=== PATIENT | female | born 1990 | race Caucasian/White ===

== ENCOUNTER → 2017-07-12 | Outpatient (CLI) | payer OTHER | LOC: FIMAGING 08:03 | PROVIDERS: ATTEND Advanced Practice Midwife | DX: Z34.92 Encounter for supervision of normal pregnancy, unspecified, second trimester (principal); Z3A.21 21 weeks gestation of pregnancy ==

== ENCOUNTER → 2017-08-23 | Outpatient (CLI) | payer OTHER | LOC: FIMAGING 09:05 | PROVIDERS: ATTEND Advanced Practice Midwife | DX: Z34.93 Encounter for supervision of normal pregnancy, unspecified, third trimester (principal); Z3A.27 27 weeks gestation of pregnancy ==

== ENCOUNTER 2017-11-09 06:00 | Inpatient (IN) | payer OTHER ==
[2017-11-09] MEDS ORDERED: OXYTOCIN 10 UNIT/ML VIAL ONE (09:45)
[2017-11-09] MEDS ORDERED: LIDOCAINE 1% 300 MG/30 ML SDV ONE (09:45)
[2017-11-09] MEDS ORDERED: MISOPROSTOL 200 MCG TAB ONE (09:45)
[2017-11-09] MEDS ORDERED: OLIVE OIL 118 ML BTL ONE (09:45)
[2017-11-09] MEDS ORDERED: AMMONIA AROMATIC 1 EACH AMP IH ONE (09:45)
[2017-11-09] MEDS ORDERED: TERBUTALINE SULFATE 1 MG/ML VIAL ONE (09:45)
[2017-11-09] MEDS ORDERED: LR 1,000 ML IV PRN (10:23)
[2017-11-09] MEDS ORDERED: LIDOCAINE 1% 300 MG/30 ML SDV SC PRN (10:23)
[2017-11-09] MEDS ORDERED: EPSOM SALT 454 GM TP PRN (10:23)
[2017-11-09] MEDS ORDERED: LR 500 ML IV PRN (10:23)
[2017-11-09] MEDS ORDERED: IBUPROFEN 600 MG TAB PO PRN (10:23)
[2017-11-09] MEDS ORDERED: MISOPROSTOL 200 MCG TAB PO PRN (10:23)
[2017-11-09] MEDS ORDERED: OXYTOCIN/RINGERS LACTATE 500 ML IV SCH (10:23)
[2017-11-09] MEDS ORDERED: TERBUTALINE SULFATE 1 MG/ML VIAL IV PRN (10:23)
[2017-11-09] MEDS ORDERED: OLIVE OIL 118 ML BTL MISC PRN (10:23)
[2017-11-09] MEDS ORDERED: AMMONIA AROMATIC 1 EACH AMP IH PRN (10:23)
[2017-11-09] MEDS ORDERED: OXYTOCIN/RINGERS LACTATE 1,000 ML IV PRN (10:23)
[2017-11-09 10:50] LABS: PLATELET COUNT 231 10^3/uL (150-400)
[2017-11-09] MEDS ORDERED: CALCIUM CARBONATE 500 MG CHEWABLE TAB PO PRN (12:15)
--- NOTE | 2017-11-09 14:10 | PDGENHP ---
History and Physical History and Physical: CARE: [facility] HPI: Patient is a 27 yo @ 39 wks that presents to L&D with for induction of labor due to IUGR at 8% with normal EDC: 11/16/2017 which is based on LMP: 02/09/2017 which is known and consistent with Ultrasound at 6 weeks. Her is complicated by: IUGR and loose ligament syndrome Review of Systems: Constitutional: Denies any fever, chills, or fatigue HEENT: denies any visual changes, difficulty swallowing, hearing loss Cardiovascular: Denies any chest pain, palpitations, leg swelling Respiratory: denies any cough, wheezing, or shortness of breathe GI: Denies any nausea, vomiting, diarrhea, constipation : denies any dysuria, urgency, frequency, vaginal bleeding Musculoskeletal: denies any muscle or bone pain Skin: denies any rashes Neuro: denies any headache, seizures, lightheadedness, dizziness, or loss of consciousness Psychiatric: denies any depression, anxiety, or SI/HI thoughts HISTORY: Previous OB history: Uncomplicated SAB Past medical history: pylo in college Past surgical history: knee and shoulder surgery Medications: PNV Allergies:Cipro - rash; Adhesive tape: rash LABS: Rh: O+ ABS: Neg Rubella: Immune HbsAg: NR HIV: NR VDRL: NR 1hr: 80 GC: neg Chlamydia: neg Pap: GBS: neg BMI: (prepreg) 25.5 PHYSICAL EXAM: Constitutional: WN, A&Ox3 HEENT: normocephalic atraumatic, supple Heart: RRR, no murmur Chest: CTA-B Abdomen: Soft, nontender, gravid SVE: 4/80/-1 Extremities: neg edema, negative homans sign Neuro: grossly normal Psych: normal affect assessment: FHT baseline 140 +accels, no decels, moderate variability Contractions: toco q irregular Assessment: 1) 27 yo G [id number] with IUP@ 39 2) Induction of labor for IUGR 3) GBS negative 4) Cat 1 FHR tracing Plan: 1) Admit to L&D 2) Pitocin induction per protocol 3) Desires epidural for pain management 4) Anticipate
[2017-11-09] MEDS ORDERED: BUPIVACAINE 0.25% 30 ML SDV ONE (16:23)
[2017-11-09] MEDS ORDERED: PHENYLEPHRINE HCL 100 MCG/ML SYR ONE (16:23)
[2017-11-09] MEDS ORDERED: fentaNYL 2MCG/ML/BUP 0.1% RTU 100 ML BAG EP ONE (16:23)
[2017-11-09] MEDS ORDERED: fentaNYL 100 MCG/2 ML INJ ONE (16:24)
[2017-11-09] MEDS ORDERED: PHENYLEPHRINE HCL 100 MCG/ML SYR IVP PRN (17:14)
[2017-11-09] MEDS ORDERED: NALOXONE HCL 0.4 MG/ML INJ IVP PRN (17:14)
[2017-11-09] MEDS ORDERED: ONDANSETRON 4 MG/2 ML VIAL IVP PRN (17:14)
--- NOTE | 2017-11-09 17:19 | PREANESOB ---
Obstetric Pre-Anesthesia Info - General Info Proposed Procedure: labor : 2 Para: 0 ARIANNA: 11/16/17 Gestational Age: 39 week(s) and 0 day(s) - Info Status: Full Term Monitors: External FHR Pattern: Reassuring - Labor Status Cervical Dilation per last OB SVE: 5 Indications for Labor Analgesia: Augmentation of Labor Labor Epidural: Proposed (see OB notes for more OB info) Anesthesia ROS: previous anesthetics: shoulder, knee x 3; no anesthesia problems; neg fam hx of anes problems; meds: pnv; sensitivity to tape; allergy to cipro; vs recorded on other software Allergies/Adverse Reactions: Allergy/AdvReac Type Severity Reaction Status Date / Time ciprofloxacin [From Cipro] Allergy Verified 09/23/14 07:22 ciprofloxacin HCl Allergy Verified 09/23/14 07:22 [From Cipro] Home Medications: Medication Instructions Recorded Bcp 09/23/14 Nitrofurantoin Macrobid [Macrobid 100 mg PO BID #12 cap 09/23/14 100 mg] Visit Medications: Generic Name Dose Route Start Last Admin Trade Name Freq PRN Reason Stop Dose Admin Ammonia (Aromatic Spirit) 1 each 11/09/17 10:23 Ammonia Aromatic IH 11/19/17 10:22 ONCE PRN Fainting Calcium Carbonate 500 - 1,000 mg 11/09/17 12:15 11/09/17 12:19 Tums PO 05/08/18 12:14 1,000 mg Q4 PRN Administration Acid Reflux Diphenhydramine HCl 25 - 50 mg 11/09/17 17:14 Benadryl Injection IVP 05/08/18 17:13 Q6HRS PRN Itching Ephedrine Sulfate 10 mg 11/09/17 17:14 Ephedrine Sulfate IV 05/08/18 17:13 .Q2M PRN Hypotension Lactated Ringer's 1,000 mls @ 0 mls/hr 11/09/17 10:23 Lr IV 11/10/17 10:22 PRN PRN SEE PROTOCOL CONDITIONS Protocol Per Protocol Lactated Ringer's 500 mls @ 500 mls/hr 11/09/17 10:23 Lr IV 11/09/17 19:41 PRN PRN Maternal Hypotension Oxytocin/Lactated Ringer's 1,000 mls @ 0 mls/hr 11/09/17 10:23 Pitocin 20 Units/Lr (Premix) IV PRN PRN Post bleeding Wide Open Oxytocin/Lactated Ringer's 500 mls @ 0 mls/hr 11/09/17 10:23 11/09/17 10:59 Pitocin 30 Units/Lr (Premix) IV 05/08/18 10:22 500 mls CONT CHRISTINA Administration Protocol Per Protocol Fentanyl/Bupivacaine HCl 100 mls @ 0 mls/hr 11/09/17 17:30 Fentanyl/Bupivacaine/Ns 2 Mcg/Ml 0.1% (Premix EP 11/19/17 17:29 CONT CHRISTIAN Protocol As Directed Lactated Ringer's 500 mls @ 0 mls/hr 11/09/17 17:30 Lr IV 05/08/18 17:29 CONT CHRISTIAN As Directed Ibuprofen 600 mg 11/09/17 10:23 Motrin PO ONCE PRN post , pain Lidocaine HCl 300 mg 11/09/17 10:23 Lidocaine Hcl 1% SC 05/08/18 10:22 ONCE PRN episiotomy Magnesium Sulfate 454 gm 11/09/17 10:23 Epsom Salt TP 05/08/18 10:22 Q1H PRN perineal discomfort Misoprostol 800 - 1,000 mcg 11/09/17 10:23 Cytotec PO 05/08/18 10:22 ONCE PRN Vaginal Atony/Bleeding Naloxone HCl 0.4 mg 11/09/17 17:14 Narcan IVP 05/08/18 17:13 PRN PRN Respiratory depression [place] Oil 118 ml 11/09/17 10:23 Sweet Oil MISC 05/08/18 10:22 ONCE PRN perineal massage Ondansetron HCl 4 mg 11/09/17 17:14 Zofran IVP 11/10/17 17:13 Q4HRS PRN Nausea/Vomiting, Can't Take PO Phenylephrine HCl 100 mcg 11/09/17 17:14 Neosynephrine IVP 05/08/18 17:13 .Q2M PRN Hypotension Terbutaline Sulfate 0.25 mg 11/09/17 10:23 Brethine IV 05/08/18 10:22 ONCE PRN Tachysystole Discontinued Medications Generic Name Dose Route Start Last Admin Trade Name Freq PRN Reason Stop Dose Admin Ammonia (Aromatic Spirit) Confirm 11/09/17 09:45 Ammonia Aromatic Administered 11/09/17 09:46 Dose 1 each IH .STK-MED ONE Bupivacaine HCl Confirm 11/09/17 16:23 Sensorcaine 0.25% Sdv Administered 11/09/17 16:24 Dose 30 ml .ROUTE .STK-MED ONE Fentanyl Confirm 11/09/17 16:24 Sublimaze Administered 11/09/17 16:25 Dose 100 mcg .ROUTE .STK-MED ONE Fentanyl/Bupivacaine HCl Confirm 11/09/17 16:23 Fentanyl/Bupivacaine/Ns 2 Mcg/Ml 0.1% (Premix Administered 11/09/17 16:24 Dose 100 ml EP .STK-MED ONE Lidocaine HCl Confirm 11/09/17 09:45 Lidocaine Hcl 1% Administered 11/09/17 09:46 Dose 300 mg .ROUTE .STK-MED ONE Misoprostol Confirm 11/09/17 09:45 Cytotec Administered 11/09/17 09:46 Dose 1,000 mcg .ROUTE .STK-MED ONE [place] Oil Confirm 11/09/17 09:45 Sweet Oil Administered 11/09/17 09:46 Dose 118 ml .ROUTE .STK-MED ONE Oxytocin Confirm 11/09/17 09:45 Pitocin Administered 11/09/17 09:46 Dose 40 unit .ROUTE .STK-MED ONE Phenylephrine HCl Confirm 11/09/17 16:23 Neosynephrine Administered 11/09/17 16:24 Dose 1,000 mcg .ROUTE .STK-MED ONE Terbutaline Sulfate Confirm 11/09/17 09:45 Brethine Administered 11/09/17 09:46 Dose 1 mg .ROUTE .STK-MED ONE - Anesthesia History Response to Local Anesthetics: Normal Anesthesia & Operative History: No Prior Problems Family Anesthesia History: Negative - Social History Substance Use/Abuse: Denies - Vital Signs Height/Weight (Nursing): Height 170.18 cm Weight 89.358 kg - Focused Exam Neck exam: FROM Mallampati Score: Class 2 Mouth exam: normal dental/mouth exam Pulmonary: no respiratory distress Cardiovascular: regular rate and rhythym Labs: 11/09/17 10:31 Patient ABO/Rh O POSITIVE 11/09/17 10:31 - Plan Anesthetic Plan: magdalena Consent Signed and on Chart: Yes Patient/Guardian Understands and Agrees to Plan: Yes Urgent/Emergent Case: Anuradha saldana completed preop but documented later for safe timely pt care
--- NOTE | 2017-11-09 17:20 | POSTANESTH ---
Post Anesthetic Evaluation Cardiovascular Status: Normal, Stable Respiratory Status: Normal, Stable Level of Consciousness/Mental Status: Can Participate in Eval Pain Control: Adequate, Prn Tx Ordered Nausea/Vomiting Control: Adequate, Prn Tx Ordered Complications Possibly Related to Anesthesia: None Noted (uneventful placement of epidural, vss, motor intact, comfortable)
[2017-11-09] MEDS ORDERED: LR 500 ML IV SCH (17:30)
[2017-11-09] MEDS ORDERED: fentaNYL 2MCG/ML/BUP 0.1% RTU 100 ML EP SCH (17:30)
--- NOTE | 2017-11-09 20:31 | OBPROG ---
Labor Progress Note Assessment/Plan: Assessment: Pitocin at 20 iu's with contractions every 5 minutes, just now starting to feel contractions. VE 5/80/0 station. AROM performed with copious amounts of clear fluid returned. Vertex well applied to cervix immediately after AROM and next contraction was very strong. Plan: Desires epidural for pain management now. Anesthesia notified 11/09/17 16:20 Subjective/Intrapartum Course: 11/09/17 16:20 Contractions q 4 to 5 minutes; just now started to feel contractions. Discussed option of AROM including risks versus benefits. Desires to proceed with AROM Objective: 11/09/17 10:31 Patient ABO/Rh O POSITIVE 11/09/17 10:31 - SVE Dilation (cm): 5 Effacement (%): 80 Station: 0 Membranes: AROM Amniotic Fluid Color: Clear - Contraction Pattern Assessment Current Contraction Pattern: Regular - Procedures Non-surgical Procedures: Amniotomy - Physical Exam Estimated Weight: 2501-3400g CNM Assessment - Uterine Assessment Contraction Strength: Moderate Uterine Resting Tone: Palpates Soft Oxytocin Orders Assessment - Pre-Induction/Augmentation Assessment Presentation: Vertex Gestational Age: 39 week(s) and 0 day(s) Membrane Status: Ruptured Current Contraction Pattern: Regular - Neumann's Score Dilation: 5-6cm Effacement: 80+ Station: -1,0 Cervix: Soft Cervix Position: Mid Neumann Score Total: 11 ICD10 Worksheet Patient Problems: Problems Problem Status Onset IUGR (intrauterine growth restriction) affecting care of mother Acute - ICD10 Problem Qualifiers (1) IUGR (intrauterine growth restriction) affecting care of mother
--- NOTE | 2017-11-09 20:43 | OBDEL ---
Info Type: Vaginal Presentation at Delivery: Vertex L&D Analgesia/Anesthesia Type: Epidural GBS+: No Intrapartum Medications: Generic Name Dose Route Start Last Admin Trade Name Francois PRN Reason Stop Dose Admin Calcium Carbonate 500 - 1,000 mg 11/09/17 12:15 11/09/17 12:19 Tums PO 05/08/18 12:14 1,000 mg Q4 PRN Administration Acid Reflux Oxytocin/Lactated Ringer's 500 mls @ 0 mls/hr 11/09/17 10:23 11/09/17 10:59 Pitocin 30 Units/Lr (Premix) IV 05/08/18 10:22 500 mls CONT CHRISTIAN Administration Protocol Per Protocol - Hospital Course Intrapartum: 11/09/17 16:20 Contractions q 4 to 5 minutes; just now started to feel contractions. Discussed option of AROM including risks versus benefits. Desires to proceed with AROM Vaginal Delivery - Delivery Provider Delivery Physician/CNM: Aiyana Chisholm Proctoring Provider: Vanessa Brady - Labor and Delivery Onset of Contractions Date: 11/09/17 Onset of Contractions Time: 16:20 Onset of Contractions Type: Induced Rupture of Membranes Date: 11/09/17 Rupture of Membranes Time: 16:20 Rupture of Membranes Type: Artificial Amniotic Fluid Color: Clear Dilation Complete Date: 11/09/17 Dilation Complete Time: 17:30 Placenta Delivery Date: 11/09/17 Placenta Delivery Time: 19:58 Total Hours of Labor: 3 Non-surgical Procedures: Amniotomy Laceration: 2nd Degree Repair: 3-0 Vaginal Sponge Count Correct: Yes Vaginal Needle Count Correct: Yes Vaginal Sweep Performed: Yes EBL: 200 Delivery Events: None - Medications Labor Augmentation/Induction Methods Used: Pitocin Labor Augmentation/Induction Indication: IUGR [place] Data ARIANNA: 11/16/17 Gestational Age: 39 week(s) and 0 day(s) ICD10 Worksheet Patient Problems: Problems Problem Status Onset (spontaneous vaginal delivery) Acute - ICD10 Problem Qualifiers (1) IUGR (intrauterine growth restriction) affecting care of mother
[2017-11-10] MEDS: IBUPROFEN 600 MG TAB PO SCH ×4 (02:52→21:03)
[2017-11-10] MEDS: ACETAMINOPHEN 325 MG TAB PO SCH ×4 (02:52→17:43)
--- NOTE | 2017-11-10 15:53 | OBPP ---
Progress Note Assessment/Plan: Assessment: [id number] s/p PPD#1 Plan: routine PP care / support ambulate PO fluids anticipate d/c home tomorrow Subjective/ Course: 11/10/17 15:54 Pt doing well. She is , baby latching well. She denies any severe pain or heavy bleeding. She is ambulating and voiding without difficulty. FOB and family @BS and supportive. Objective: 11/09/17 10:31 Patient ABO/Rh O POSITIVE 11/09/17 10:31 Temp Pulse Resp BP Pulse Ox 36.3 C 93 20 112/72 93 11/10/17 08:00 11/10/17 08:00 11/10/17 08:00 11/10/17 08:00 11/10/17 08:00 Uterine Position/Fundal Height: Umbilicus -2, Midline Uterine Tone: Firm
[2017-11-10] MEDS: DOCUSATE SODIUM 100 MG CAP PO SCH (20:03)
[2017-11-11] MEDS: ACETAMINOPHEN 325 MG TAB PO SCH ×2 (00:28→08:01)
[2017-11-11] MEDS: IBUPROFEN 600 MG TAB PO SCH ×2 (03:31→08:54)
[2017-11-11] MEDS: DOCUSATE SODIUM 100 MG CAP PO SCH (08:53)
[2017-11-11 10:28] VITALS: BP 111/71
--- NOTE | 2017-11-11 11:08 | OBPP ---
Progress Note Assessment/Plan: Assessment: Assessment: [id number] s/p PPD#2 Plan: routine PP care / support ambulate PO fluids anticipate d/c home today Subjective/ Course: Doing great - ready for home. Objective: 11/09/17 10:31 Patient ABO/Rh O POSITIVE 11/09/17 10:31 Temp Pulse Resp BP Pulse Ox 36.5 C 68 20 111/71 95 11/11/17 08:00 11/11/17 08:00 11/11/17 08:00 11/11/17 08:00 11/10/17 21:08 Uterine Position/Fundal Height: At Umbilicus Uterine Tone: Firm
--- NOTE | 2017-11-11 11:31 | OBGCSDC ---
General Delivery Information - General Info : 2 Para: 1 Abortions: 1 Type: Vaginal L&D Analgesia/Anesthesia Type: Epidural Admission Date: 11/09/17 Labs: Patient ABO/Rh O POSITIVE 11/09/17 10:31 Hct 41.3 % (38.0-47.0) 11/09/17 10:31 - Hospital Course Intrapartum: 11/09/17 16:20 Contractions q 4 to 5 minutes; just now started to feel contractions. Discussed option of AROM including risks versus benefits. Desires to proceed with AROM : 11/10/17 15:54 Pt doing well. She is , baby latching well. She denies any severe pain or heavy bleeding. She is ambulating and voiding without difficulty. FOB and family @BS and supportive. Vaginal - Delivery Provider Delivery Physician/CNM: Aiyana Chisholm - Diagnosis Labor: Induced Rupture of Membranes Type: Artificial Amniotic Fluid Color: Clear Laceration: 2nd Degree Repair: 3-0 Delivery Events: None - Procedures Non-surgical Procedures: Amniotomy - Delivery Non-surgical Procedures: Amniotomy EBL: 200 [place] Data ARIANNA: 11/16/17 Gestational Age: 41 week(s) and 6 day(s) [place] Delivery Date: 11/09/17 Delivery Time: 19:53 Sex of : Female [place] Weight (gm): 2738 g Score (1 Min): 9 Score (5 Min): 9 Discharge Information - Discharge Information Condition: Good Instruction/Follow Up: See Instruction Sheet, Four Weeks, Six Weeks
== END 2017-11-11 12:25 | disposition home or self-care (01) | DRG 775 ==
LOC: FLD 09:00 → FOB 23:30
PROVIDERS: ADMIT Obstetrics & Gynecology; ATTEND Obstetrics & Gynecology
PROC: 0KQM0ZZ Repair Perineum Muscle, Open Approach (ICD-10-PCS; principal; 2017-11-09)
PROC: 10907ZC Drainage of Amniotic Fluid, Therapeutic from Products of Conception, Via Natural or Artificial Opening (ICD-10-PCS; principal; 2017-11-09)
PROC: 10E0XZZ Delivery of Products of Conception, External Approach (ICD-10-PCS; principal; 2017-11-09)
DX: O36.5930 Maternal care for other known or suspected poor fetal growth, third trimester, not applicable or unspecified (principal); O70.1 Second degree perineal laceration during delivery; Z3A.39 39 weeks gestation of pregnancy; Z37.0 Single live birth
CPT/HCPCS: J2370; J2590; J3010; J3105